=== PATIENT | male | born 1980 | race Two or more races ===

== ENCOUNTER 2022-01-28 12:04 | Emergency (ER) | payer OTHER ==
[~2022-01-28] VITALS: Ht 177.8 cm; Wt 122.5 kg
[2022-01-28] MEDS ORDERED: TENORMIN50 M1 PO (12:18)
[2022-01-28] MEDS ORDERED: COZAAR50 MG PO (12:18)
== END 2022-01-28 15:17 | disposition home or self-care (01) ==
LOC: ER 12:04
DX: M79.632 Pain in left forearm (principal)